=== PATIENT | female | born 1995 | race Caucasian/White ===

== ENCOUNTER 2017-05-04 17:06 | Emergency (ER) | payer OTHER ==
[~2017-05-04] VITALS: Ht 162.6 cm; Wt 59.0 kg
[2017-05-04 17:15] VITALS: BP_SYST 114
[2017-05-04 17:52] VITALS: BP_SYST 114
== END 2017-05-04 17:51 | disposition home or self-care (01) ==
LOC: SED 17:06
DX: H91.93 Unspecified hearing loss, bilateral (principal)
CPT/HCPCS: 99281